=== PATIENT | male | born 1975 ===

== ENCOUNTER 2017-02-23 12:06 | Emergency (ER) | payer SELFPAY ==
[~2017-02-23] VITALS: Ht 165.1 cm; Wt 74.3 kg
[~2017-02-23 12:06] MED LIST: ACET-749 PO
[2017-02-23 12:17] VITALS: TEMP 36.7; Ht 165.1 cm; Wt 74.3 kg
[2017-02-23] MEDS ORDERED: ACETAMINOPHEN 500 MG TAB PO STA (12:47)
[2017-02-23] MEDS ORDERED: COUGH DROP (SUGAR FREE) LOZ 24 LOZ/1 BOX PO STA (12:47)
[2017-02-23] MEDS ORDERED: KETOROLAC TROMETHAMINE 30 MG/ML VIAL IV STA (12:47)
[2017-02-23] MEDS ORDERED: ONDANSETRON INJ 2 MG/ML 2 ML VIAL IV STA (12:47)
[2017-02-23 13:12] LABS: BASO % 0.2 %; BASO ABS # 0.02 K/uL (0-0.2); EOS % 2.3 %; EOS ABS # 0.25 K/uL (0-0.5); HEMATOCRIT 43.3 % (42-52); HEMOGLOBIN 15.8 g/dL (14.0-18.0); IG# 0.03 K/uL (0.00-0.02); LYMPH % 16.8 %; LYMPH ABS # 1.81 K/uL (1.2-3.4); MEAN CELL VOLUME 86.8 fL (80-100); MEAN CORPUSCULAR HEMOGLOBIN 31.7 pg (25-34); MEAN CORPUSCULAR HGB CONC 36.5 g/dl (32-36); MEAN PLATELET VOLUME 9.5 fL (7.4-10.4); MONO % 6.8 %; MONO ABS # 0.73 K/uL (0.11-0.59); NEUT % 73.6 %; NEUT ABS # 7.92 K/uL (1.4-6.5); PLATELET COUNT 188 K/uL (130-400); RED CELL DISTRIBUTION WIDTH CV 12.4 % (11.5-14.5); RED CELL DISTRIBUTION WIDTH SD 39.4 fL (36.4-46.3); WHITE BLOOD COUNT 10.76 K/uL (4.8-10.8)
--- NOTE | 2017-02-23 13:13 | DIAGNOSTIC IMAGING REPORT ---
SINGLE VIEW CHEST CLINICAL HISTORY: Atypical chest pain. Cough. FINDINGS: An AP, portable, upright chest radiograph is obtained. No prior studies are available for comparison at the time of dictation. The examination is degraded by portable technique and patient rotation. The cardiomediastinal silhouette is unremarkable. Bibasilar airspace opacities likely represent atelectasis. The lungs and pleural spaces are otherwise clear. No pneumothorax is seen. The bony thorax is grossly intact. IMPRESSION: Bibasilar airspace opacities likely represent atelectasis. Cortical clinically for evidence of an infectious/inflammatory pneumonitis. Electronically signed by: Lonnie Chairez M.D. 02/23/2017 1:11 PM Dictated Date/Time: 02/23/2017 1:11 PM
[2017-02-23 13:23] LABS: PTT PATIENT 27.7 SECONDS (21.0-31.0)
[2017-02-23 13:28] LABS: BLOOD UREA NITROGEN 10 mg/dl (7-18); CALCIUM 9.3 mg/dl (8.5-10.1); CARBON DIOXIDE 28 mmol/L (21-32); CREATININE 0.77 mg/dl (0.60-1.40); GLUCOSE 94 mg/dl (70-99); POTASSIUM 3.8 mmol/L (3.5-5.1); SODIUM 135 mmol/L (136-145)
[2017-02-23 13:49] LABS: INFLUENZA B ANTIGEN Neg for Influ B (NEG)
[2017-02-23] MEDS ORDERED: AZIT250T PO (13:49)
--- NOTE | 2017-02-23 13:49 | EMERGENCY ROOM VISIT NOTE ---
History Report prepared by Gi: Taylor Barnard Under the Supervision of: Dr. Tino Montes M.D. First contact with patient: 12:25 Chief Complaint: FLU LIKE SX Stated Complaint: COUGHING FOR 3 WKS,FEVER,CHILLS,ACHES History of Present Illness The patient is a 41 year old male with no significant past medical history who presents to the ED with a cc of persistent cough beginning 3 weeks ago. Cough is sometimes productive of yellow sputum. Positive subjective fever, chills, body aches, lightheadedness, sore throat, congestion, nose bleeds. Patient denies any recent travel, antibiotics, or sick contacts. He does drink alcohol occasionally. Source of History: patient Onset: 3 weeks ago Position: other (global) Quality: other (cough) Timing: other (persistent) Associated Symptoms: + fevers, + chills, + sorethroat Note: Pt reports body aches, lightheadedness, congestion, nose bleeds. Review of Systems See HPI for pertinent positives and negatives. A total of ten systems were reviewed and were otherwise negative. Past Medical & Surgical Medical Problems: (1) No chronic problems Family History No pertinent family history stated. Social History Smoking Status: Never Smoker Marital Status: Occupation Status: employed Current/Historical Medications Scheduled Azithromycin (Zithromax), 250 MG PO DAILY Allergies Coded Allergies: No Known Allergies (Unverified , 02/23/17) Physical Exam Vital Signs Date Time Temp Pulse Resp B/P (MAP) Pulse Ox O2 Delivery O2 Flow Rate FiO2 02/23/17 14:03 79 16 126/82 95 02/23/17 12:17 36.7 100 18 135/91 95 Room Air Physical Exam GENERAL: Awake, alert, well-appearing, NAD, nontoxic HENT: Normocephalic, atraumatic. Posterior pharyngeal erythema. No tonsillar or uvular edema. No stridor. EYES: Normal conjunctiva. Sclera non-icteric. NECK: Supple. No nuchal rigidity. FROM. RESPIRATORY: Crackles at the left base, no rhonchi, wheezing CARDIAC: RRR, no MRG ABDOMEN: Soft, NTND, BS+ MSK: No chest wall TTP, no LE edema NEURO: GCS 15, CN 2-12 intact, moves all 4s on command SKIN: No rash or jaundice noted. Medical Decision & Procedures ER Provider Diagnostic Interpretation: Radiology results as stated below per my review and radiologist interpretation: SINGLE VIEW CHEST CLINICAL HISTORY: Atypical chest pain. Cough. FINDINGS: An AP, portable, upright chest radiograph is obtained. No prior studies are available for comparison at the time of dictation. The examination is degraded by portable technique and patient rotation. The cardiomediastinal silhouette is unremarkable. Bibasilar airspace opacities likely represent atelectasis. The lungs and pleural spaces are otherwise clear. No pneumothorax is seen. The bony thorax is grossly intact. IMPRESSION: Bibasilar airspace opacities likely represent atelectasis. Cortical clinically for evidence of an infectious/inflammatory pneumonitis. Electronically signed by: Lonnie Chairez M.D. 02/23/2017 1:11 PM Dictated Date/Time: 02/23/2017 1:11 PM Laboratory Results 02/23/17 13:00 Red Blood Count 4.99, Mean Corpuscular Volume 86.8, Mean Corpuscular Hemoglobin 31.7, Mean Corpuscular Hemoglobin Concent 36.5, Mean Platelet Volume 9.5, Neutrophils (%) (Auto) 73.6, Lymphocytes (%) (Auto) 16.8, Monocytes (%) (Auto) 6.8, Eosinophils (%) (Auto) 2.3, Basophils (%) (Auto) 0.2, Neutrophils # (Auto) 7.92, Lymphocytes # (Auto) 1.81, Monocytes # (Auto) 0.73, Eosinophils # (Auto) 0.25, Basophils # (Auto) 0.02 02/23/17 13:00 Test 02/23/17 13:00 White Blood Count 10.76 K/uL (4.8-10.8) Red Blood Count 4.99 M/uL (4.7-6.1) Hemoglobin 15.8 g/dL (14.0-18.0) Hematocrit 43.3 % (42-52) Mean Corpuscular Volume 86.8 fL (80-100) Mean Corpuscular Hemoglobin 31.7 pg (25-34) Mean Corpuscular Hemoglobin Concent 36.5 g/dl (32-36) Platelet Count 188 K/uL (130-400) Mean Platelet Volume 9.5 fL (7.4-10.4) Neutrophils (%) (Auto) 73.6 % Lymphocytes (%) (Auto) 16.8 % Monocytes (%) (Auto) 6.8 % Eosinophils (%) (Auto) 2.3 % Basophils (%) (Auto) 0.2 % Neutrophils # (Auto) 7.92 K/uL (1.4-6.5) Lymphocytes # (Auto) 1.81 K/uL (1.2-3.4) Monocytes # (Auto) 0.73 K/uL (0.11-0.59) Eosinophils # (Auto) 0.25 K/uL (0-0.5) Basophils # (Auto) 0.02 K/uL (0-0.2) RDW Standard Deviation 39.4 fL (36.4-46.3) RDW Coefficient of Variation 12.4 % (11.5-14.5) Immature Granulocyte % (Auto) 0.3 % Immature Granulocyte # (Auto) 0.03 K/uL (0.00-0.02) Prothrombin Time 10.2 SECONDS (9.0-12.0) Prothromb Time International Ratio 1.0 (0.9-1.1) Activated Partial Thromboplast Time 27.7 SECONDS (21.0-31.0) Partial Thromboplastin Ratio 1.1 Anion Gap 6.0 mmol/L (3-11) Est Creatinine Clear Calc Drug Dose 116.6 ml/min Estimated GFR () 128.8 Estimated GFR (Non- 111.1 BUN/Creatinine Ratio 13.5 (10-20) Calcium Level 9.3 mg/dl (8.5-10.1) Troponin I < 0.015 ng/ml (0-0.045) Influenza Type A Antigen Neg for Influ A (NEG) Influenza Type B Antigen Neg for Influ B (NEG) Laboratory results reviewed by me Medications Administered Medications (Trade) Dose Ordered Sig/Timoteo Route Start Time Stop Time Status Last Admin Dose Admin Ondansetron HCl (Zofran Inj) 4 mg NOW STAT IV 02/23/17 12:47 02/23/17 12:50 DC 02/23/17 13:06 4 MG Acetaminophen (Tylenol Tab) 1,000 mg NOW STAT PO 02/23/17 12:47 02/23/17 12:50 DC 02/23/17 13:06 1,000 MG Ketorolac Tromethamine (Toradol Inj) 30 mg NOW STAT IV 02/23/17 12:47 02/23/17 12:50 DC 02/23/17 13:06 30 MG Menthol (Nice Lisa) 1 lisa NOW STAT PO 02/23/17 12:47 02/23/17 12:51 DC 02/23/17 13:06 1 LISA Azithromycin (Zithromax Tab) 500 mg NOW ONCE PO 02/23/17 14:00 02/23/17 14:01 DC 02/23/17 14:03 500 MG ECG Indication: other Rate (beats per minute): 95 Rhythm: normal sinus Findings: other (normal intervals, right axis deviation, no other STS changes or TWI) ED Course 1235: The patient was evaluated in room C12B. A complete history and physical exam was performed. 1338: I reevaluated the patient. Discussed results and discharge instructions: He verbalized understanding and agreement. The patient is ready for discharge. Medical Decision The patient is a 41 year old male with no significant past medical history who presents to the ED with a cc of persistent cough beginning 3 weeks ago. Differential diagnosis: Etiologies such as viral syndrome, otitis, pharyngitis, pneumonia, influenza, meningitis, urinary tract infection, sepsis, bacteremia, as well as others were entertained. Patient was seen and evaluated the bedside. Patient had had some persistent cough that has been described as extremely purulent. Patient did have blood work that was completed along with EKG, troponin, chest x-ray. Patient's chest x-ray said likely atelectatic however cannot rule out infectious etiology. Patient's EKG was nonischemic. Patient had a negative troponin. Heart score less than 4 less likely ACS especially given the patient's history and physical exam. Patient was given a first dose of azithromycin. Patient was flu negative. Patient's other blood work fairly unremarkable. Patient had a white blood cell count of 10,000. Given the patient's history and physical exam was most likely possible early pneumonia versus chronic bronchitis. She was given a prescription for Z-Maurice. Patient's tachycardia resolved. PE RC of 1 and a Wells of 1 still less likely PE given the patient's history and physical exam. Most likely infectious in nature. Patient was deemed suitable for outpatient follow-up and treatment. Patient was given strict follow-up, discharge, and return precautions. All questions were answered. Patient was deemed suitable for outpatient follow-up at this time. Patient agreed with the plan of care and was safely discharged home. Medication Reconcilliation Current Medication List: was personally reviewed by me Blood Pressure Screening Patient's blood pressure: Elevated blood pressure Blood pressure disposition: Referred to PCP Impression Primary Impression: Influenza-like symptoms Additional Impressions: Upper respiratory infection Acute bronchitis Scribe Attestation The scribe's documentation has been prepared under my direction and personally reviewed by me in its entirety. I confirm that the note above accurately reflects all work, treatment, procedures, and medical decision making performed by me. Departure Information Dispostion Home / Self-Care Prescriptions Azithromycin (Zithromax) 250 Mg Tab 250 MG PO DAILY for 4 Days, #4 TAB Prov: Tino Montes M.D. 02/23/17 Referrals No Doctor, Assigned (PCP) Patient Instructions Bronchitis Chronic, [facility] Additional Instructions Please return to the emergency department if you have worsening or recurrent symptoms not amenable to at-home treatment. Please call for a follow-up appointment with her primary care physician. Please take your medications as prescribed. If you have other concerns and/or complaints please feel free to also call your primary care physician's office or return the ED for further evaluation, management, and treatment. You may also try saltwater gargles and tea with honey and lemon for sore throat. Please consider saline sprays for nasal congestion, hot showers, or in the fire. You may take 600 mg Ibuprofen every 6 hours as needed for pain with food for no more than 2 consecutive days. You may take tylenol 1000 mg every 6 hours as needed for pain. You may take motrin and tylenol separately or at the same time. Take your medications as prescribed. If taking an antibiotic consider taking a probiotic and/or eating yogurt, but at the least, please take with food as it can cause upset stomach. If culture results are not available at discharge, if they are positive for concern of infection, you will be informed of the results as soon as they are available. If you were seen between 11pm and 7AM all radiology reads will be re-read by our in house staff. If any major discrepancies are discovered, you will be notified. You have been examined and treated today on an emergency basis only. This is not a substitute for, or an effort to provide, complete comprehensive medical care. It is impossible to recognize and treat all injuries or illnesses in a single emergency department visit. It is therefore important that you follow up closely with [facility], your PCP, and/or your specialist(s). Call as soon as possible for an appointment. Thank you for your time and consideration. I look forward to speaking with you again soon. Please don't hesitate to call us if you have any questions. Problem Qualifiers Additional Impressions: Upper respiratory infection URI type: unspecified URI Qualified Codes: J06.9 - Acute upper respiratory infection, unspecified Acute bronchitis Bronchitis organism: unspecified organism Qualified Codes: J20.9 - Acute bronchitis, unspecified
[2017-02-23] MEDS ORDERED: AZITHROMYCIN 250 MG TAB PO ONE (14:00)
[2017-02-23 14:03] VITALS: BP 126/82; PULSE 79; O2SAT 95
== END 2017-02-23 14:29 | disposition home or self-care (01) ==
LOC: C.EDB 12:07 → C.EDC 14:29
DX: J06.9 Acute upper respiratory infection, unspecified (principal); J20.9 Acute bronchitis, unspecified